=== PATIENT | female | born 1985 | race Caucasian/White ===

== ENCOUNTER 2019-07-15 13:38 | Emergency (ER) | payer MEDICAID ==
[~2019-07-15] VITALS: Ht 172.7 cm; Wt 77.3 kg
[~2019-07-15 13:38] MED LIST: NO HOME MEDS; ONDA8TAB9 PO; ORPH100T2 PO
[2019-07-15 13:51] VITALS: BP 114/69
--- NOTE | 2019-07-15 13:57 | NUR ---
PT WAS NOT IN THE LOBBY
[2019-07-15] MEDS ORDERED: polymyxin B sulf/tmp ophth drops 10ml EACHEYE SCH (17:00)
== END 2019-07-15 14:51 | disposition home or self-care (01) ==
LOC: ER 13:39
DX: H57.89 Other specified disorders of eye and adnexa (principal); M19.90 Unspecified osteoarthritis, unspecified site; G89.29 Other chronic pain; Z88.0 Allergy status to penicillin
CPT/HCPCS: 99281; 99283

== ENCOUNTER 2019-08-07 18:53 | Emergency (ER) | payer MEDICAID ==
[~2019-08-07] VITALS: Ht 172.7 cm; Wt 78.2 kg
[2019-08-07 19:09] VITALS: BP 116/75
[2019-08-07] MEDS ORDERED: CLIN150C2 PO (19:12)
== END 2019-08-07 19:11 | disposition home or self-care (01) ==
LOC: ER 18:53
DX: K08.89 Other specified disorders of teeth and supporting structures (principal); M19.90 Unspecified osteoarthritis, unspecified site; G89.29 Other chronic pain; Z88.0 Allergy status to penicillin; Z79.2 Long term (current) use of antibiotics; Z79.899 Other long term (current) drug therapy
CPT/HCPCS: 99283

== ENCOUNTER 2020-06-08 17:30 | Emergency (ER) | payer MEDICAID ==
[~2020-06-08] VITALS: Ht 172.7 cm; Wt 84.1 kg
[2020-06-08 17:34] VITALS: BP 134/95
[2020-06-08] MEDS ORDERED: bacitracin 15gm ointment TP ONE (18:05)
== END 2020-06-08 18:24 | disposition home or self-care (01) ==
LOC: ER 17:31
DX: S01.112A Laceration without foreign body of left eyelid and periocular area, initial encounter (principal); M19.90 Unspecified osteoarthritis, unspecified site; G89.29 Other chronic pain; Z72.89 Other problems related to lifestyle; Z88.0 Allergy status to penicillin; Z79.899 Other long term (current) drug therapy; W22.8XXA Striking against or struck by other objects, initial encounter; Y93.89 Activity, other specified; Y92.89 Other specified places as the place of occurrence of the external cause; Y99.8 Other external cause status
CPT/HCPCS: 99282

== ENCOUNTER 2021-03-20 18:34 | Emergency (ER) | payer MEDICAID ==
[~2021-03-20] VITALS: Ht 172.7 cm; Wt 84.1 kg
[~2021-03-20 18:34] MED LIST changes: +LIDOcaine 1% w/epiNEPHrine 1:200,000 30ml vial ONE
[2021-03-20 19:18] VITALS: BP 128/109
[2021-03-20 20:14] LABS: URINE HCG NEGATIVE (NEG)
[2021-03-20 20:15] LABS: CLARITY,URINE CLEAR (Clear); COLOR,URINE YELLOW (Yellow); GLUCOSE, URINE NEGATIVE (Neg); KETONES,URINE NEGATIVE (Neg); LEUKOCYTE ESTERASE ,URINE NEGATIVE (Neg); NITRITES, URINE NEGATIVE (Neg); OCCULT BLOOD,URINE NEGATIVE (Neg); PROTEIN,URINE NEGATIVE (Neg); UROBILINOGEN,URINE 0.2 E.U/dL (0.2-1.0)
[2021-03-20 20:17] LABS: UA COLLECTION TYPE OTHER
[2021-03-20] MEDS ORDERED: CefTRIAXone 1000mg IM Kit (w/lidocaine diluent) IM ONE (20:20)
[2021-03-20] MEDS ORDERED: azithromycin 250mg tablet PO ONE (20:20)
[2021-03-20] MEDS ORDERED: CLIN-97 PO (20:25)
[2021-03-20] MEDS ORDERED: IBUP-1984 PO (21:04)
== END 2021-03-20 21:19 | disposition home or self-care (01) ==
LOC: ER 18:35
DX: L02.31 Cutaneous abscess of buttock (principal); H92.02 Otalgia, left ear; G89.29 Other chronic pain; F17.210 Nicotine dependence, cigarettes, uncomplicated; M54.9 Dorsalgia, unspecified; Z11.3 Encounter for screening for infections with a predominantly sexual mode of transmission
CPT/HCPCS: 10060; 36415; 81003; 81025; 87491; 87591; 96372; 99283; J0696

== ENCOUNTER 2023-04-30 14:21 | Emergency (ER) | payer MEDICAID ==
[~2023-04-30] VITALS: Ht 172.7 cm; Wt 65.9 kg
[~2023-04-30 14:21] MED LIST changes: +CLIN-97 PO; -LIDOcaine 1% w/epiNEPHrine 1:200,000 30ml vial ONE; -ORPH100T2 PO; +ORPH100T4 PO
[2023-04-30 14:33] VITALS: BP 137/74
[2023-04-30] MEDS ORDERED: OFLO5DRO5 RIGHT EAR (15:20)
== END 2023-04-30 15:56 | disposition home or self-care (01) ==
LOC: ER 14:22
DX: H60.8X1 Other otitis externa, right ear (principal); G89.29 Other chronic pain; M54.9 Dorsalgia, unspecified; Z88.0 Allergy status to penicillin; Z79.899 Other long term (current) drug therapy
CPT/HCPCS: 99283

== ENCOUNTER 2024-10-27 08:49 | Emergency (ER) | payer MEDICAID, OTHER ==
[~2024-10-27] VITALS: Ht 172.7 cm; Wt 79.4 kg
[~2024-10-27 08:49] MED LIST changes: +OFLO5DRO5 RIGHT EAR
[2024-10-27 08:55] VITALS: BP 124/77; PULSE 57
[2024-10-27] MEDS: LIDOcaine 1% W/epiNEPHrine 1:100,000 20ml vial IJ ONE (09:12)
[2024-10-27] MEDS ORDERED: CEPH500C81 PO (09:13)
[2024-10-27] MEDS ORDERED: SULF1TAB49 PO (09:13)
[2024-10-27 09:15] VITALS: RESP 16
[2024-10-27] MEDS: TETanus/Pertussis (Acell)/Diphther VAC/PF (Tdap-Adult) 0.5ml syringe IMVAC ONE (09:24)
[2024-10-27] MEDS: sulfamethoxazole/trimethoprim DS (800/160mg) tablet PO ONE (09:24)
[2024-10-27] MEDS: ibuprofen tablet 400 MG TABLET PO ONE (09:24)
[2024-10-27] MEDS: cephalexin 250mg capsule PO ONE (09:25)
[2024-10-27 09:38] VITALS: TEMP 97.6
== END 2024-10-27 09:41 | disposition home or self-care (01) ==
LOC: ER 08:49
DX: L02.415 Cutaneous abscess of right lower limb (principal); M19.90 Unspecified osteoarthritis, unspecified site; Z88.0 Allergy status to penicillin
CPT/HCPCS: 10060; 90471; 90715; 99284; A6449

== ENCOUNTER 2024-10-30 20:19 | Emergency (ER) | payer MEDICAID, OTHER ==
[~2024-10-30] VITALS: Ht 175.3 cm; Wt 78.3 kg
[~2024-10-30 20:19] MED LIST changes: +CEPH500C81 PO; +SULF1TAB49 PO
[2024-10-30 20:43] LABS: BASOPHILS % (AUTO) 0.3 % (0-1); HEMATOCRIT 34.5 % (35.0-45.0); HEMOGLOBIN 11.3 g/dl (12.0-16.0); LYMPHOCYTES # (AUTO) 0.7 X10'3 (1.1-4.8); LYMPHOCYTES % (AUTO) 15.9 % (21-51); MEAN CORPUSCULAR HEMOGLOBIN 28.6 PG (27.0-31.0); MEAN CORPUSCULAR HGB CONC 32.7 g/dL (33.0-36.5); MEAN CORPUSCULAR VOLUME 87.3 FL (78-98); MEAN PLATELET VOLUME 7.3 FL (7.4-10.4); MONOCYTES # (AUTO) 0.7 X10'3 (0-0.9); MONOCYTES % (AUTO) 15.6 % (2-12); NEUTROPHILS # (AUTO) 2.8 X10'3 (1.8-7.7); NEUTROPHILS % (AUTO) 67.2 % (42-75); PLATELET COUNT 238 X10'3 (140-440); RED BLOOD COUNT 3.96 X10'6 (4.20-5.60); RED CELL DISTRIBUTION WIDTH 16.2 % (11.5-14.5); WHITE BLOOD COUNT 4.2 X10'3 (4.5-11.0)
[2024-10-30 20:59] LABS: ALBUMIN 3.1 G/DL (3.4-5.0); ANION GAP 10 (8-16); BLOOD UREA NITROGEN 8 MG/DL (7-18); BUN/CREATININE RATIO 9.6 (10.0-20.0); CALCIUM 8.5 MG/DL (8.5-10.1); CHLORIDE 102 MMOL/L (99-107); CREATININE 0.83 MG/DL (0.40-0.90); GLUCOSE 101 MG/DL (70-104); POTASSIUM 3.7 MMOL/L (3.5-5.1); SODIUM 136 MMOL/L (135-145); eCRCL 97 ML/MIN; eGFR 77 ML/MIN
[2024-10-30 21:23] LABS: TOTAL CELLS COUNTED 100
[2024-10-31 01:32] VITALS: BP 123/72; PULSE 95; RESP 16; TEMP 99; O2SAT 96
[2024-10-31] MEDS ORDERED: BENZ-38 PO (01:42)
[2024-10-31] MEDS ORDERED: ONDA-245 PO (01:42)
[2024-10-31] MEDS: benzonatate 100mg capsule PO ONE (01:48)
[2024-10-31] MEDS: ondansetron 4mg rapidly disintigrating tab PO ONE (01:49)
[2024-10-31] MEDS: acetaminophen 325mg tablet PO ONE (01:49)
[2024-10-31] MEDS: ibuprofen tablet 400 MG TABLET PO ONE (01:50)
== END 2024-10-31 01:57 | disposition home or self-care (01) ==
LOC: ER 20:19
DX: J11.1 Influenza due to unidentified influenza virus with other respiratory manifestations (principal); M19.90 Unspecified osteoarthritis, unspecified site; Z88.0 Allergy status to penicillin
CPT/HCPCS: 71045; 80048; 84484; 85007; 85025; 93005; 99285